=== PATIENT | male | born 1940 | race Caucasian/White ===

== ENCOUNTER → 2018-09-03 | Outpatient (CLI) | payer OTHER, BC ==
[~2018-09-03] VITALS: Ht 182.9 cm; Wt 112.5 kg
[~2018-09-03] MED LIST: COREG6.25 MG PO; COUMADIN 5 MG TA5 M1 PO; ENOXAPARIN40 MG/0.1 SUBQ; LISINOPRIL20 MG PO; MEGA MULTI FOR1 EAC1 PO; METAMUCIL1 EAC1 PO; MIRALAX17 GM PO; PROTONIX40 M1 PO
--- NOTE | 2018-09-06 12:07 | PATH ---
[facility] [address] [place] [address] PATHOLOGY RPT PROCEDURE Name: PERERAMIHIR VOGEL Room #: REG SHABBIR Mortensen.#: [id number] ������������������ Admission: 09/03/18 ������������������ Date of : 40 Discharge: Report #: [id number] Path Case #: [id number] [facility] Accession Number: [id number] . 01 Material submitted: . GASTRIC BIOPSY CONFIRM H PYLORI ERADICATION . 01 Clinical history: . Preop DX: Hx of duodenal ulcer Postop DX: Healed duodenal ulcer Confirm H. pylori eradication . 02 Diagnosis: Gastric mucosa, gastric confirm H. pylori eradication, endoscopic biopsy: - Mild chronic active gastritis. - Negative for intestinal metaplasia or atrophy. - Negative for Helicobacter pylori (properly controlled immunohistochemical stain performed). (IUV:pit 09/05/2018) QTP/09/05/2018 . 02 Electronically signed: . Juliette Robles MD, Pathologist NPI- [id number] . 01 Gross description: . Received in formalin labeled "Mihir Perera, gastric BX," are six segments of stacy-brown soft tissue measuring 0.8 x 0.7 x 0.3 cm in aggregate dimensions and ranging from 0.2 to 0.4 cm in maximum dimension. The specimen is submitted entirely in cassette A1. (DAC; 09/04/2018) XDC/XDC . 02 Pathologist provided ICD-10: K29.50 . 02 CPT . 269262, [id number] Specimen Comment: A courtesy copy of this report has been sent to Specimen Comment: [phone], . Specimen Comment: Report sent to / DR MCARTHUR Performed at: 01 [facility] [address] [place] [address] [id number] MD Toni Mcarthur MD Phone: [phone] Performed at: 02 [facility] [address] [place] [address] PATHOLOGY RPT PROCEDURE Name: MIHIR PERERA Room #: REG [facility] Yousif.#: [id number] ������������������ Admission: 09/03/18 ������������������ Date of : 40 Discharge: Report #: [id number] Path Case #: [id number] [address] [place] [address] [id number] MD Juliette Robles MD Phone: [phone]
== END | disposition home or self-care (01) ==
LOC: GI 12:11
DX: K29.50 Unspecified chronic gastritis without bleeding (principal); K31.89 Other diseases of stomach and duodenum; I10 Essential (primary) hypertension; I25.10 Atherosclerotic heart disease of native coronary artery without angina pectoris; I25.2 Old myocardial infarction; K21.9 Gastro-esophageal reflux disease without esophagitis; D64.9 Anemia, unspecified; Z79.01 Long term (current) use of anticoagulants; E66.09 Other obesity due to excess calories; Z98.890 Other specified postprocedural states; Z95.5 Presence of coronary angioplasty implant and graft; Z79.899 Other long term (current) drug therapy; Z85.828 Personal history of other malignant neoplasm of skin; Z68.33 Body mass index [BMI] 33.0-33.9, adult
CPT/HCPCS: 62110; 62900